=== PATIENT | female | born 1940 | race Caucasian/White ===

== ENCOUNTER 2025-08-21 23:58 | Emergency (ER) | payer MEDICARE, OTHER ==
[~2025-08-21] VITALS: Ht 160 cm; Wt 87.5 kg
--- NOTE | 2025-08-22 01:17 | ED.PDOC ---
History of Present Illness HPI Comments 85-year-old female who came to ER for flu-like symptoms. Patient does have history of hypertension. Currently being treated for a tooth infection. For the past 2 weeks, patient has been experiencing cough, colds and congestion. One-week ago, having intermittent episodes of shortness of breath, associated with midsternal chest pains whenever he does deep breathing, sharp, nonradiating. Note that her blood pressure was elevated at 204/83 mmHg. Upon arrival to the emergency room your blood pressure was 189/109 mm Hg, and saturating 94% on room air REVIEW OF SYSTEMS: General: No fever, no chills, or fatigue HEENT: No sore throat, no earache, no congestion, no neck pain. Cardiac: (+) chest pain. No palpitations. Lungs: (+) shortness of breath, (+) cough. GI: No nausea, no vomiting, no diarrhea, no constipation, no abdominal pain : No dysuria, frequency, or urgency. No hematuria. Musculoskeletal: No joint pain , no joint swelling, no extremity edema. Skin: No rash, no itching. Neuro: No headache, no dizziness, no weakness EXAM: General: Awake, alert and oriented. No acute distress. Skin: Skin in warm, dry and intact. Appropriate color for ethnicity. HEENT: The head is normocephalic and atraumatic. Conjunctivae are clear without exudates or hemorrhage. Sclera is non-icteric. Eyelids are normal in appearance without swelling or lesions. Oral mucosa is pink and moist Neck: The neck is supple with normal range of motion. No JVD. Cardiac: Heart rate and rhythm are normal. No murmurs, gallops, or rubs are auscultated. Respiratory: No signs of respiratory distress. Lung sounds are clear in all lobes bilaterally without rales, rhonchi, or wheezes. Abdominal: Abdomen is soft, non-tender without distention. Bowel sounds are present and normoactive in all four quadrants. Extremities: Upper and lower extremities are atraumatic in appearance without deformity or edema. Neurological: The patient is awake, alert and oriented to person, place, and time with normal speech. Speech is clear. There is no facial asymmetry. Psychiatric: Appropriate mood and affect. Good judgement and insight Chief Complaint: Flu like Time Seen by MD: 01:17 Reviewed Notes: Nurses Notes Allergies: Coded Allergies: NO KNOWN ALLERGIES (Unverified , 08/22/25) Information Source: Patient Mode of Arrival: Ambulatory Past Medical History PAST MEDICAL HISTORY: HTN Surgical History: Appendectomy, Tonsillectomy SKIVER HEEL TAP History: Denies all SKIVER HEEL TAP Hx Family History Family History: Reviewed,noncontributory to illness Social History Smoker: Non-Smoker Alcohol: Denies ETOH Use Drugs: Denies Drug Use Lives In: Home Was a procedure done? Was a procedure done?: No EKG EKG : Pulse Rate (adult): 61 Cardiac Rhythm: NSR Hypertrophy: LVH Comments No STEMI Differential Dx Considerations may include: Anemia, electrolyte imbalance, pneumonia, influenza, COVID-19, hypertensive urgency X-Ray, Labs, Meds, VS Vital Signs Date Time Temp Pulse Resp B/P (MAP) Pulse Ox O2 Delivery O2 Flow Rate FiO2 08/22/25 03:02 215/101 08/22/25 02:47 61 08/22/25 02:43 65 95 Room Air* 0 21 08/22/25 02:43 98.5 65 18 182/92 (122) 95 98.5 08/22/25 01:17 61 08/22/25 00:20 61 08/22/25 00:07 97.8 61 18 189/109 94 97.8 Lab Test 08/22/25 04:43 08/22/25 02:22 08/22/25 01:31 Range/Units Troponin I High Sensitivity 7 6 6 </=34 ng/L White Blood Count 9.0 4.4-10.8 10^3/uL Red Blood Count 4.99 4.0-5.20 10^6/uL Hemoglobin 15.1 12.2-16.2 g/dL Hematocrit 45.9 36.0-46.0 % Mean Corpuscular Volume 92.0 80.0-100.0 fL Mean Corpuscular Hemoglobin 30.3 28.0-32.0 pg Mean Corpuscular Hemoglobin Concent 33.0 32.0-36.0 g/dL Red Cell Distribution Width 14.2 11.8-14.3 % Platelet Count 270 140-450 10^3/uL Mean Platelet Volume 7.5 6.9-10.8 fL Neutrophils (%) (Auto) 48.4 37.0-80.0 % Lymphocytes (%) (Auto) 38.2 10.0-50.0 % Monocytes (%) (Auto) 9.0 0.0-12.0 % Eosinophils (%) (Auto) 3.8 0.0-7.0 % Basophils (%) (Auto) 0.6 0.0-2.0 % Neutrophils # (Auto) 4.3 1.6-8.6 10 ^3/uL Lymphocytes # (Auto) 3.4 0.4-5.4 10 ^3/uL Monocytes # (Auto) 0.8 0-1.3 10 ^3/uL Eosinophils # (Auto) 0.3 0-0.8 10 ^3/uL Basophils # (Auto) 0.1 0-0.2 10 ^3/uL Nucleated Red Blood Cells 0.0 % D-Dimer, Quantitative 0.35 0.0-0.49 mg/L FEU Sodium Level 141 136-145 mmol/L Potassium Level 4.5 3.5-5.1 mmol/L Chloride Level 107 98-107 mmol/L Carbon Dioxide Level 24 20-31 mmol/L Anion Gap 10 5-15 Blood Urea Nitrogen 15 9-23 mg/dL Creatinine 0.97 0.550-1.02 mg/dL Glomerular Filtration Rate Calc 57 >90 mL/min BUN/Creatinine Ratio 15.5 10.0-20.0 Serum Glucose 115 H 74-106 mg/dL Calcium Level 9.9 8.7-10.4 mg/dL B-Type Natriuretic Peptide 29.39 0-100 pg/mL Current Medications Medications (Trade) Dose Ordered Sig/Bola Route Start Time Stop Time Status Last Admin Aspirin 324 mg ONCE ONCE PO 08/22/25 01:30 08/22/25 01:31 DC 08/22/25 02:44 Clonidine HCl (Catapres Tablet) 0.1 mg ONCE ONCE PO 08/22/25 03:00 08/22/25 03:01 DC 08/22/25 03:02 Time of 1ST Reevaluation: 01:12 Reevaluation 1ST: Unchanged Patient Education/Counseling: Need For Follow Up Family Education/Counseling: No Family Present SEPSIS Sepsis Screen Date sepsis recognized/suspect: Aug 22, 2025 Time Sepsis recognized/suspect: 001 Recent Procedure: No On Antibiotic Therapy: No Respiratory Rate >20: No Heart Rate >90: No Temp<36 C (96.8 F) or >38.3 C: No SBP <90 or MAP <65 mmHG: No New Acute Mental Status Change: No Is the patient on CPAP, BIPAP,: No Physician Orders Chest Xray 1 View (08/22/25 01:19) Vital Signs Q1HR (08/22/25 01:19) Saline Lock (08/22/25 01:19) Sprayer Operator (08/22/25 ) Covid19 Antigen Sandhya (08/22/25 ) Rapid Influenza A&B (08/22/25 01:19) Electrocardigram (08/22/25 02:19) Electrocardigram (08/22/25 04:19) Vital Signs Date Time Temp Pulse Resp B/P (MAP) Pulse Ox O2 Delivery O2 Flow Rate FiO2 08/22/25 03:02 215/101 08/22/25 02:47 61 08/22/25 02:43 65 95 Room Air* 0 21 08/22/25 02:43 98.5 65 18 182/92 (122) 95 98.5 08/22/25 01:17 61 08/22/25 00:20 61 08/22/25 00:07 97.8 61 18 189/109 94 97.8 Laboratory Tests Test 08/22/25 01:31 White Blood Count 9.0 10^3/uL (4.4-10.8) Medications Medications Dose Ordered Sig/Bola Route Start Time Stop Time Status Last Admin Dose Admin Aspirin 324 mg ONCE ONCE PO 08/22/25 01:30 08/22/25 01:31 DC 08/22/25 02:44 Clonidine HCl 0.1 mg ONCE ONCE PO 08/22/25 03:00 08/22/25 03:01 DC 08/22/25 03:02 Departure 1 Departure Time of Disposition: 05:29 Impression: Primary Impression: Chest pain Additional Impression: Hypertension Disposition: 01 HOME / SELF CARE / HOMELESS Condition: Stable Additional Instructions: ED DISCHARGE INSTRUCTIONS Instructions: Please read all instructions provided in this packet carefully. Although you have been discharged from the Emergency Department, this does not mean that you have a "clean bill of health". No definitive diagnosis for your symptoms has been made today. It is possible that you are in the process of developing a serious illness. This is why you must return to the ED without fail if any new or worsening symptoms (especially if your symptoms include chest pain, trouble breathing, abdominal pain, fever, headache, confusion, trouble seeing, or trouble walking) It is also very important that you see a primary care provider (PCP) within the next 3-5 days to follow up. If you are unable to get an appointment, return to the ED for re-evaluation. You had elevated blood pressure reading today. Untreated high blood pressure can have serious consequences. However, you need a follow-up appointment to recheck your blood pressure to determine whether or not you need treatment. Make an appointment with your primary care provider for this within the next week. CHEST PAIN EDUCATION There are many things that can cause chest pain. Some are not serious and will get better on their own in a few days. But some kinds of chest pain need more testing and treatment. Your doctor may have recommended a follow-up visit in the next few days. If you are not getting better, you may need more tests or treatment. Even though your doctor has released you, you still need to watch for any problems. The doctor carefully checked you, but sometimes problems can develop later. If you have new symptoms or if your symptoms do not get better, get medical care right away. If you have worse or different chest pain or pressure that lasts more than 5 minutes or you passed out (lost consciousness), call 911 or seek other emergency help right away. A medical visit is only one step in your treatment. Even if you feel better, you still need to do what your doctor recommends, such as going to all suggested follow-up appointments and taking medicines exactly as directed. This will help you recover and help prevent future problems. How can you care for yourself at home? Rest until you feel better. Take your medicine exactly as prescribed. Call your doctor if you think you are having a problem with your medicine. Do not drive after taking a prescription pain medicine. When should you call for help? Call 911 if: You passed out (lost consciousness). You have severe difficulty breathing. You have symptoms of a heart attack. These may include: Chest pain or pressure, or a strange feeling in your chest. Sweating. Shortness of breath. Nausea or vomiting. Pain, pressure, or a strange feeling in your back, neck, jaw, or upper belly or in one or both shoulders or arms. Lightheadedness or sudden weakness. A fast or irregular heartbeat. After you call 911, the washer operator may tell you to chew 1 adult-strength or 2 to 4 low-dose aspirin. Wait for an ambulance. Do not try to drive yourself. Call your doctor now or seek immediate medical care if: You have any trouble breathing. You have new or different chest pain. You are dizzy or lightheaded, or you feel like you may faint. Watch closely for changes in your health, and be sure to contact your doctor if you do not get better as expected. Current as of: May 28, 2024 Author: [employer] Staff? Comments MDM: 85-year-old female with chest pain, worse with inspiration. Serial EKG negative for signs of ischemia. Serial High sensitivity troponin negative. CXR shows no acute process. Presentation not suggestive of acute coronary syndrome, pulmonary embolism or aortic dissection. Patient improved at time of discharge. Patient has not been hypoxic, in respiratory distress or dyspneic during the ED observation. Blood pressure improved. Patient able to ambulate without difficulty. Patient felt stable for discharge to follow up with PCP promptly. Patient advised to return to the ED with any new, worsening or concerning symptoms or inability to follow up with PCP. - I reviewed the following notes from the pt's past medical encounters: N/A The following tests were ordered, and results were reviewed by me: (See diagnostic results section) The following test were independently interpreted by me: EKG, chest x-ray-no acute disease Additional information was gathered from interviewing the following independent historians: Patient's granddaughter at bedside I reviewed and agreed with the following test results read by other providers: Chest x-ray I discussed treatments and results with patient and granddaughter Decision regarding hospitalization or escalation of hospital level of care: Risks and benefits of admission for further treatment of patient's condition was considered however due to patient's stable condition patient will be discharged to follow up closely or return to care for worsening of condition or inability to follow up. Critical Care Note Critical Care Time?: No Stability Stability form required: No Heart Score Heart Score: Heart Score Response (Comments) Value History Moderate Suspicious 1 EKG Normal 0 Age >65 2 Risk Factors 1 or 2 risk factors 1 Troponin Normal limit 0 Total 4 I personally scribed for BRAN LOPEZ MD ([email or web address]) on 08/22/25 at 01:17. Electronically submitted by Bubba Freeman ([email or web address]). BRAN LOPEZ MD Aug 22, 2025 01:17
[2025-08-22 02:06] LABS: Hematocrit 45.9 % (36.0-46.0); Hemoglobin 15.1 g/dL (12.2-16.2); Mean Corpuscular Hemoglobin 30.3 pg (28.0-32.0); Mean Corpuscular Volume 92.0 fL (80.0-100.0); Nucleated Red Blood Cells % 0.0 %
--- NOTE | 2025-08-22 02:07 | DVH ---
CHEST RADIOGRAPH Indication: cp Technique: Single frontal view of the chest was obtained COMPARISON: None FINDINGS: Lines and Tubes: None Lungs: Clear Pleura: No effusion. No pneumothorax. Cardiomediastinal contours: Unremarkable Bones: Unremarkable IMPRESSION: 1. No acute disease.
[2025-08-22 02:10] LABS: Chloride 107 mmol/L (98-107); Potassium 4.5 mmol/L (3.5-5.1); Sodium 141 mmol/L (136-145)
[2025-08-22 02:11] LABS: Anion Gap 10 (5-15); Calcium 9.9 mg/dL (8.7-10.4); Carbon Dioxide 24 mmol/L (20-31)
[2025-08-22 02:16] LABS: BUN/Creatinine Ratio 15.5 (10.0-20.0); Blood Urea Nitrogen 15 mg/dL (9-23); Glucose 115 mg/dL (74-106)
[2025-08-22 02:43] VITALS: BP 182/92; PULSE 65; RESP 18; TEMP 98.5; O2SAT 95
[2025-08-22] MEDS: ACETAMINOPHEN 500 MG TAB or CAP PO ONE (02:44)
[2025-08-22 04:45] VITALS: PULSE 54
--- NOTE | 2025-08-22 04:47 | ECG ---
[facility] Test Date: 2025-08-22 Test Time: 04:45:51 Pat Name: KIM MORGAN Department: [facility] ED Patient ID: [id number] Room: Gender: F Occup Ther: ANU : 1940 Requested By: BRAN LOPEZ Order Number: [id number] Reading MD: Rito Sow Measurements Intervals [place] Rate: 54 P: 52 MA: 179 QRS: -5 QRSD: 90 T: 45 QT: 450 QTc: 427 Interpretive Statements Sinus rhythm Abnormal R-wave progression, early transition Left ventricular hypertrophy Inferior infarct, old Electronically Signed On 08-24-2025 15:02:22 PDT by Rito Sow Please click the below link to view image of tracing.
--- NOTE | 2025-08-22 19:17 | ECG ---
[facility] Test Date: 2025-08-22 Test Time: 00:20:56 Pat Name: KIM MORGAN Department: Room: Gender: F Senior Sharepoint Developer: MICHELLE : 1940 Requested By: BRAN LOPEZ Order Number: [id number] Reading MD: Rito Sow Measurements Intervals [place] Rate: 61 P: 41 [place]: 176 QRS: -9 QRSD: 84 T: 48 QT: 412 QTc: 415 Interpretive Statements Sinus rhythm Left ventricular hypertrophy Inferior infarct, old Electronically Signed On 08-24-2025 15:01:28 PDT by Rito Sow Please click the below link to view image of tracing.
--- NOTE | 2025-08-22 19:17 | ECG ---
[facility] Test Date: 2025-08-22 Test Time: 02:47:44 Pat Name: KIM MORGAN Department: Room: Gender: F Sales Center Associate: : 1940 Requested By: BRAN LOPEZ Order Number: [id number] Reading MD: Rito Sow Measurements Intervals [place] Rate: 61 P: 51 [place]: 173 QRS: -6 QRSD: 91 T: 30 QT: 409 QTc: 412 Interpretive Statements Sinus arrhythmia Low voltage, precordial leads Abnormal R-wave progression, early transition Left ventricular hypertrophy Electronically Signed On 08-24-2025 15:01:59 PDT by Rito Sow Please click the below link to view image of tracing.
== END 2025-08-22 05:57 | disposition home or self-care (01) ==
LOC: ER 23:58
DX: R07.89 Other chest pain (principal); I10 Essential (primary) hypertension; Z90.49 Acquired absence of other specified parts of digestive tract; Z90.89 Acquired absence of other organs; Z79.899 Other long term (current) drug therapy
CPT/HCPCS: 36415; 71045; 80048; 83880; 84484; 85025; 85379; 93005